=== PATIENT | female | born 1990 | race Hispanic/Latino ===

== ENCOUNTER 2021-03-21 21:15 | Observation (INO) | payer BC, SELFPAY ==
[2021-03-21 22:30] LABS: #Eosinphils 0.2 10x3/uL (0.0-0.5); #Monocytes 0.5 10x3/uL (0.0-1.1); #Neutrophils 4.3 10x3/uL (1.5-8.4); %Basophils 0.5 % (0.0-2.0); %Eosinophils 2.7 % (0.0-6.0); %Monocytes 6.5 % (0.0-10.0); %Neutrophils 56.2 % (40.0-75.0); Hemoglobin 10.5 g/dL (12.0-15.5); Mean Corpuscular HGB CONC 31.3 g/dL (32.0-36.0); Mean Corpuscular Hemoglobin 28.7 pg (27.0-33.0); Mean Corpuscular Volume 91.5 fl (81.6-98.3); Platelet Count 298 10x3/uL (150-450); RBC Distribution Width 14.4 % (11.5-14.5); Red Blood Cell (RBC) Count 3.66 10x6/uL (3.90-5.03); White Blood Cell (WBC) Count 7.7 10x3/uL (3.5-10.5)
[2021-03-21] MEDS ORDERED: Morphine 4 MG/ML VIAL ONE (22:31)
[2021-03-22] MEDS ORDERED: Bupivacaine PF 0.5% 30 ML VIAL ONE (00:07)
[2021-03-22] MEDS ORDERED: EPINEPHrine 1 MG/ML AMP ONE (00:07)
[2021-03-22 00:38] LABS: SARS-CoV-2 NAA Rapid Test Not Detected (NotDetected)
[2021-03-22] MEDS ORDERED: PHENYLEPHRINE-NS 100 MCG/ML 10 ML SYRINGE ONE (01:39)
[2021-03-22] MEDS ORDERED: Meperidine HCl/PF 25 MG/ML VIAL ONE (03:47)
[2021-03-22 05:36] VITALS: BMI 193.4
[2021-03-22] MEDS ORDERED: Ketorolac Tromethamine 30 MG/ML VIAL IVP PRN (06:09)
[2021-03-22] MEDS: traMADol HCl 50 MG TAB PO PRN ×2 (06:21→09:59)
[2021-03-22 07:45] VITALS: TEMP 98
[2021-03-22 10:02] VITALS: BP 103/60
== END 2021-03-22 11:50 | disposition home or self-care (01) ==
LOC: CSHERS 21:15 → INTOOBSV 03-22 05:09 → CSHPED 03-22 05:09
PROVIDERS: ADMIT Obstetrics & Gynecology; ATTEND Obstetrics & Gynecology
PROC: 10T24ZZ Resection of Products of Conception, Ectopic, Percutaneous Endoscopic Approach (ICD-10-PCS; principal; 2021-03-22)
PROC: 0UT54ZZ Resection of Right Fallopian Tube, Percutaneous Endoscopic Approach (ICD-10-PCS; 2021-03-22)
PROC: 0UB14ZZ Excision of Left Ovary, Percutaneous Endoscopic Approach (ICD-10-PCS; 2021-03-22)
DX: O00.101 Right tubal pregnancy without intrauterine pregnancy (principal); O08.1 Delayed or excessive hemorrhage following ectopic and molar pregnancy; D27.1 Benign neoplasm of left ovary; K66.1 Hemoperitoneum; Z20.822 Contact with and (suspected) exposure to COVID-19
CPT/HCPCS: 36415; 86850; 86900; 86901; 88305; 88307; J0171; J1100; J1885; J2175; J2270; J2405; J2704; J3010; S0020; U0002

== ENCOUNTER 2024-11-11 06:00 | Inpatient (IN) | payer MEDICAID, SELFPAY ==
[2024-11-11] MEDS ORDERED: Lidocaine 1% (PF) 30 ML VIAL SC PRN (07:51)
[2024-11-11] MEDS ORDERED: Ondansetron PF 4 MG/2 ML Vial IVP PRN ×2 (07:51→19:24)
[2024-11-11] MEDS ORDERED: hydrALAZINE 20 MG/ML VIAL SLOW IVP PRN ×2 (07:51→19:24)
[2024-11-11] MEDS ORDERED: HYDROcodone/Acetaminophen 5/325 mg Tablet PO PRN (07:51)
[2024-11-11 08:06] LABS: Hematocrit 33.8 % (34.9-44.5); Hemoglobin 10.8 g/dL (12.0-15.5); Mean Corpuscular Hemoglobin 28.8 pg (27.0-33.0); Mean Corpuscular Volume 90.1 fL (81.6-98.3); Platelet Count 308 10x3/uL (150-450); Red Blood Cell (RBC) Count 3.75 10x6/uL (3.90-5.03); White Blood Cell (WBC) Count 12.27 10x3/uL (3.5-10.5)
[2024-11-11] MEDS: Oxytocin 30 units/NS 500 ML 500 ML IV SCH ×2 (08:14→19:21)
[2024-11-11 08:47] VITALS: BMI 39.6
[2024-11-11] MEDS: fentaNYL/Ropivacaine Epidural 100 ML ONE (09:19)
[2024-11-11 09:21] LABS: Syphilis Antibody Index 0.05 S/CO (<1.00 Non-Reactive)
[2024-11-11 10:07] LABS: Hep B Surf Ag - L&D Non-Reactive S/CO (NonReactive)
[2024-11-11] MEDS ORDERED: Carboprost 250 MCG/ML AMP IM PRN (12:44)
[2024-11-11] MEDS ORDERED: Bupivacaine 0.25% HCL 30 ML VIAL ONE (17:00)
[2024-11-11] MEDS: Methylergonovine 0.2 MG/ML VIAL IM PRN (18:44)
[2024-11-11] MEDS: Tranexamic Acid 1,000 MG/10 ML VIAL IVP PRN (18:47)
[2024-11-11] MEDS: Ibuprofen 800 MG TAB PO PRN (19:22)
[2024-11-11] MEDS ORDERED: Benzocaine-Menthol 82.5 ML CAN TOP PRN (19:24)
[2024-11-11] MEDS ORDERED: Preparation H Ointment 28 GM TUBE PR PRN (19:24)
[2024-11-11] MEDS ORDERED: Boostrix 0.5 ML (Tdap) VIAL (>/=7 yrs of age) IM ONE (19:24)
[2024-11-11] MEDS ORDERED: Lanolin Ointment 7 GM TUBE TOP PRN (19:24)
[2024-11-11] MEDS ORDERED: diphenhydrAMINE 25 MG CAP PO PRN (19:24)
[2024-11-11] MEDS ORDERED: Milk Of Magnesia 30 ML UDCUP PO PRN (19:24)
[2024-11-11] MEDS ORDERED: Bisacodyl 10 MG SUPP PR PRN (19:24)
[2024-11-11] MEDS: HYDROcodone/Acetaminophen 5/325 mg Tablet PO PRN (22:03)
[2024-11-12] MEDS: PHENYLEPHRINE-NS 100 MCG/ML 10 ML SYRINGE ONE (03:56)
[2024-11-12] MEDS: Ibuprofen 800 MG TAB PO SCH (03:57)
[2024-11-12 04:27] LABS: Hematocrit 26.3 % (34.9-44.5); Hemoglobin 8.6 g/dL (12.0-15.5)
[2024-11-12] MEDS: Ferrous Sulfate 325 MG TAB PO SCH (08:30)
[2024-11-12] MEDS: HYDROcodone/Acetaminophen 10/325 mg Tablet PO PRN (08:30)
[2024-11-13] MEDS ORDERED: Cyclobenzaprine 10 MG TAB PO SCH (07:15)
[2024-11-13] MEDS: Cyclobenzaprine 10 MG TAB PO SCH (08:36)
[2024-11-13 11:57] VITALS: BP 114/69; TEMP 97.8
== END 2024-11-13 17:00 | disposition home or self-care (01) | DRG 807 ==
LOC: CSHLD 06:36 → CSHPP 20:31
PROVIDERS: ADMIT Obstetrics & Gynecology; ATTEND Obstetrics & Gynecology
PROC: 10E0XZZ Delivery of Products of Conception, External Approach (ICD-10-PCS; principal; 2024-11-11)
PROC: 4A1HXCZ Monitoring of Products of Conception, Cardiac Rate, External Approach (ICD-10-PCS; 2024-11-11)
DX: O99.02 Anemia complicating childbirth (principal); Z37.0 Single live birth; D50.9 Iron deficiency anemia, unspecified; Z79.899 Other long term (current) drug therapy; Z90.49 Acquired absence of other specified parts of digestive tract; Z98.890 Other specified postprocedural states; Z3A.39 39 weeks gestation of pregnancy
CPT/HCPCS: 36415; 51702; 72170; 85014; 85018; 85027; 86780; 86850; 86900; 86901; 87340; J0595; J0665; J2210; J2590; J7120